=== PATIENT | female | born 1995 | race Caucasian/White ===

== ENCOUNTER → 2024-01-09 | Outpatient (REF) | payer SELFPAY ==
[2024-01-09 19:23] LABS: CREATININE, URINE 178.9 MG/DL
== END ==
LOC: M LAB REF 17:07
PROVIDERS: ATTEND Registered Nurse
DX: E11.9 Type 2 diabetes mellitus without complications (principal)

== ENCOUNTER → 2024-06-28 | Outpatient (CLI) | payer OTHER | LOC: M RAD 12:46 | PROVIDERS: ATTEND Registered Nurse | DX: M25.832 Other specified joint disorders, left wrist (principal); M25.532 Pain in left wrist ==

== ENCOUNTER → 2024-10-31 | Outpatient (REF) | payer OTHER | LOC: M LAB REF 17:33 | PROVIDERS: ATTEND Nurse Practitioner Family | DX: R35.0 Frequency of micturition (principal) ==